=== PATIENT | female | born 1970 | race Caucasian/White ===

== ENCOUNTER 2016-08-09 18:29 | Emergency (ER) | payer OTHER ==
[~2016-08-09] VITALS: Ht 167.6 cm; Wt 73.9 kg
--- NOTE | 2016-08-09 20:13 | ED NECK/BACK PAIN COMPLAINT ---
History of Present Illness General Chief Complaint: Low Back Pain/Injury Stated Complaint: LOW BACK AND HIP PAIN Source: patient, family Exam Limitations: no limitations Vital Signs & Intake/Output Vital Signs & Intake/Output Vital Signs Date Time Temp Pulse Resp B/P B/P Pulse O2 O2 Flow FiO2 Mean Ox Delivery Rate 08/09 1848 97.7 106 16 174/94 97 Room Air Allergies Uncoded Allergies: Allergy Other NKA Med Allergies NKDA Reconcile Medications Cyclobenzaprine HCl 10 MG TABLET 1 TAB PO TID PRN MUSCLE SPASM Hydrocodone/Acetaminophen (Vicodin 5-300 MG Tablet) 5 MG-300 MG TABLET 1 TAB PO TID PRN pain ten...[id number] Ibuprofen 800 MG TABLET 1 TAB PO TID PRN PAIN Triage Note: TRIAGE: SEVERE BACK PAIN, APPEARS TREMULOUS, HYPERVENTILATING AND ANXIOUS. TOOK MOTRIN AT 11AM WITH NO CHANGE. PAIN TO TRANSVERSE LOW BACK INTO HIPS. PT WITH FLIGHT OF IDEAS AND SPEAKING OF MULTIPLE TRAUMAS AND STRESSORS. DENIES SYMPTOMS. REPORTS LIGHTHEADEDNESS AND DIZZINESS, MOSTLY WHEN HYPERVENTILATING. DENIES SI/HI Triage Nurses Notes Reviewed? yes Onset: Gradual Duration: day(s): Timing: recent history Quality/Severity: moderate Location: lumbar spine Radiation: none Context: "I have 3 kids and lift them up all the time." Method of Injury: twisted, unknown Loss of Consciousness: no loss of consciousness Modifying Factors: movement Associated Symptoms: muscle spasm : No Patient currently breastfeeds: No HPI: 45 yo woman presents with lower and mid thoracic back pain x 2-3 days, associated with muscle spasm and tightness. She took 2 OTC ibuprofens today without significant effect. She notes that she is able to ambulate, but has no numbness, radiation, tingling , bowel or bladder issues. She has no fever, chills, weight loss, dysuria. She is otherwise well and takes no meds. Past History Travel History Traveled to [place] past 21 day No Medical History Any Pertinent Medical History? see below for history Neurological: NONE EENT: NONE Cardiovascular: NONE Respiratory: NONE Gastrointestinal: NONE Hepatic: NONE Renal: NONE Musculoskeletal: NONE Psychiatric: anxiety, depression, PTSD Endocrine: NONE Blood Disorders: NONE Cancer(s): NONE Surgical History Surgical History: none Psychosocial History What is your primary language [place] Tobacco Use: Current Daily Use Daily Tobacco Use Amount/Type: => 5 Cigarettes daily ETOH Use: denies use Illicit Drug Use: denies illicit drug use Family History Hx Contributory? No Review of Systems Review of Systems Constitutional: Reports: no symptoms. Eyes: Reports: no symptoms. Ears, Nose, Throat, Mouth: Reports: no symptoms. Respiratory: Reports: no symptoms. Cardiovascular: Reports: no symptoms. Gastrointestinal/Abdominal: Reports: no symptoms. Musculoskeletal: Reports: no symptoms. Skin: Reports: no symptoms. Neurological/Psychological: Reports: no symptoms. All Other Systems: Reviewed and Negative Physical Exam Physical Exam General Appearance: well developed/nourished, mild distress Head: atraumatic Eyes: Bilateral: PERRL, EOMI. Ears, Nose, Throat, Mouth: hearing grossly normal Neck: normal inspection, supple, paraspinous muscle tender, no midline tenderness Respiratory: normal breath sounds Cardiovascular: regular rate/rhythm Gastrointestinal: soft, non-tender Back: normal inspection, muscle spasm, no vertebral tenderness, no focal bony tenderness. paraspinal muscle spasm Extremities: normal range of motion Straight Leg Raising: Right: Negative. Left: Negative. Neurologic/Psych: awake, alert, oriented x 3, normal mood/affect Skin: intact, normal color, warm/dry Comments: dtr's, strength, light touch intact in lower extremities. Progress Differential Diagnosis: herniated disc, myofascial strain, muscle spasm. i doubt significant bony process, kidney stones, infection. Plan of Care: Orders Procedure Date/time Status URINE DRUGS OF ABUSE 08/09 1846 Complete URINALYSIS 08/09 1846 Complete Laboratory Tests 08/09/16 1850: Urine Opiates Screen < 100.00, Methadone Screen 67, Barbiturate Screen < 60, Ur Phencyclidine Scrn < 6.00, Amphetamines Screen 196, U Benzodiazepines Scrn < 85, Urine Cocaine Screen < 50, Urine Cannabis Screen 68.10 H, Urine Color YEL, Urine Clarity CLEAR, Urine pH 5.5, Ur Specific [place] >= 1.030, Urine Protein NEG, Urine Ketones NEG, Urine Nitrite NEG, Urine Bilirubin NEG, Urine Urobilinogen 0.2, Ur Leukocyte Esterase NEG, Ur Microscopic SEDIMENT EXAMINED, Urine RBC RARE, Urine WBC 1-3 H, Ur Epithelial Cells FEW, Urine Bacteria FEW H , Urine Hemoglobin TRACE-INTACT, Urine Glucose NEG Departure Departure Disposition: HOME OR SELF CARE Condition: Stable Clinical Impression Primary Impression: Back pain Referrals: PATIENT HAS NO PRIMARY CARE DR (PCP/Family) Departure Forms: Customer Survey General Discharge Information Prescriptions: Current Visit Scripts Hydrocodone/Acetaminophen (Vicodin 5-300 MG Tablet) 1 TAB PO TID PRN pain #10 TAB ten...[id number] Cyclobenzaprine HCl 1 TAB PO TID PRN MUSCLE SPASM #30 TAB Ibuprofen 1 TAB PO TID PRN PAIN #90 TAB Comments 08/09/16, 20:26.... discussed at length with patient... i offered xray and blood work... she declines... She has tried ibuprofen at home... will give short course of vicodin, nsaids, flexeril... close follow up advised.
[2016-08-09] MEDS ORDERED: VICODIN 5-3001 EACH PO (20:17)
[2016-08-09] MEDS ORDERED: CYCLOBENZAPRINE10 M1 PO (20:17)
[2016-08-09] MEDS ORDERED: IBUPROFEN800 M1 PO (20:17)
[2016-08-09 20:28] VITALS: BP 170/96
== END 2016-08-09 20:38 ==
LOC: ERH 18:29
DX: M54.5 Low back pain (principal)
CPT/HCPCS: 80307; 81001